=== PATIENT | male | born 1940 | race Caucasian/White ===

== ENCOUNTER 2018-04-30 18:13 | Emergency (ER) | payer OTHER, MEDICAID ==
[~2018-04-30] VITALS: Ht 170.2 cm; Wt 89.0 kg
[2018-04-30] MEDS ORDERED: LISI40TA PO (18:38)
[2018-04-30] MEDS ORDERED: MIRT15TA4 PO (18:38)
[2018-04-30] MEDS ORDERED: ASPI-515 PO (18:38)
[2018-04-30] MEDS ORDERED: TRAM50TA2 PO (18:38)
[2018-04-30] MEDS ORDERED: HYDR25TA6 PO (18:38)
[2018-04-30] MEDS ORDERED: LOVA20TA2 PO (18:38)
[2018-04-30] MEDS ORDERED: FERR324T5 PO (18:38)
[2018-04-30] MEDS ORDERED: GLIM2TAB2 PO (18:38)
[2018-04-30] MEDS ORDERED: CHLORDIAZEPOXIDE 5 MG CAPSULE PO ONE (19:00)
[2018-04-30 19:20] LABS: BASOPHILS # (AUTO) 0.06 x10^3/uL (0-0.1); BASOPHILS % (AUTO) 1 % (0-1); EOSINOPHILS # (AUTO) 0.02 x10^3/uL (0-0.4); EOSINOPHILS % (AUTO) 0 % (1-7); LYMPHOCYTES # (AUTO) 1.05 x10^3/uL (1-3.4); LYMPHOCYTES % (AUTO) 20 % (22-44); MD NO; MEAN CORPUSCULAR HEMOGLOBIN 27.1 pg (27.5-34.5); MEAN CORPUSCULAR HGB CONC 32.9 g/dL (33.2-36.2); MEAN CORPUSCULAR VOLUME 82.3 fL (81-97); MEAN PLATELET VOLUME 6.4 fL (7.4-10.4); MONOCYTES # (AUTO) 0.47 x10^3/uL (0.2-0.8); MONOCYTES % (AUTO) 9 % (2-9); NEUTROPHILS # (AUTO) 3.58 x10^3/uL (1.8-6.8); NEUTROPHILS % (AUTO) 69 % (42-75); PLATELET COUNT 341 x10^3/uL (130-400); RED BLOOD COUNT 4.92 x10^6/uL (4.38-5.82); RED CELL DISTRIBUTION WIDTH 16.5 % (9.4-14.8)
[2018-04-30 19:31] LABS: ALBUMIN 3.6 g/dL (3.4-5.0); ANION GAP 10 mmol/L (5-15); CALCIUM 9.1 mg/dL (8.5-10.1); CHLORIDE 102 mmol/L (98-107); CREATININE 1.08 mg/dL (0.7-1.3)
[2018-04-30] MEDS ORDERED: CHLORDIAZEPOXIDE 10 MG CAPSULE ONE (20:14)
[2018-04-30 20:22] VITALS: BP 157/96
[2018-04-30] MEDS ORDERED: CHLORDIAZEPOXIDE 10 MG CAPSULE PO PRN (20:30)
== END 2018-04-30 20:24 | disposition home or self-care (01) ==
LOC: ED 20:18
DX: F10.10 Alcohol abuse, uncomplicated (principal); F19.10 Other psychoactive substance abuse, uncomplicated; I10 Essential (primary) hypertension; E11.9 Type 2 diabetes mellitus without complications
CPT/HCPCS: 36415; 80048; 82040; 85025; 93005; 99285

== ENCOUNTER 2018-05-01 07:36 | Emergency (ER) | payer OTHER, MEDICAID ==
[~2018-05-01] VITALS: Ht 170.2 cm; Wt 87.0 kg
[~2018-05-01 07:36] MED LIST: ASPI-515 PO; FERR324T5 PO; GLIM2TAB2 PO; HYDR25TA6 PO; LISI40TA PO; LOVA20TA2 PO; MIRT15TA4 PO; TRAM50TA2 PO
[2018-05-01] MEDS ORDERED: LORazepam 1MG TABLET PO ONE (08:00)
[2018-05-01] MEDS ORDERED: LORazepam 1MG TABLET ONE (08:15)
[2018-05-01 08:32] LABS: BASOPHILS # (AUTO) 0.04 x10^3/uL (0-0.1); BASOPHILS % (AUTO) 1 % (0-1); EOSINOPHILS # (AUTO) 0.07 x10^3/uL (0-0.4); EOSINOPHILS % (AUTO) 1 % (1-7); LYMPHOCYTES # (AUTO) 1.29 x10^3/uL (1-3.4); LYMPHOCYTES % (AUTO) 19 % (22-44); MD NO; MEAN CORPUSCULAR HEMOGLOBIN 26.7 pg (27.5-34.5); MEAN CORPUSCULAR HGB CONC 32.4 g/dL (33.2-36.2); MEAN CORPUSCULAR VOLUME 82.5 fL (81-97); MEAN PLATELET VOLUME 6.8 fL (7.4-10.4); MONOCYTES % (AUTO) 6 % (2-9); NEUTROPHILS % (AUTO) 74 % (42-75); PLATELET COUNT 330 x10^3/uL (130-400); RED BLOOD COUNT 5.53 x10^6/uL (4.38-5.82); RED CELL DISTRIBUTION WIDTH 16.4 % (9.4-14.8)
[2018-05-01 08:33] LABS: ANION GAP 15 mmol/L (5-15); CALCIUM 8.9 mg/dL (8.5-10.1); CHLORIDE 102 mmol/L (98-107); CREATININE 1.37 mg/dL (0.7-1.3)
[2018-05-01] MEDS ORDERED: DIPHENHYDRAMINE 25 MG CAPSULE ONE (08:42)
[2018-05-01 08:47] VITALS: BP 152/101
[2018-05-01] MEDS ORDERED: DIPHENHYDRAMINE 25 MG CAPSULE PO ONE (09:00)
== END 2018-05-01 09:19 | disposition home or self-care (01) ==
LOC: ED 09:16
DX: T78.3XXA Angioneurotic edema, initial encounter (principal); W19.XXXA Unspecified fall, initial encounter; Y93.89 Activity, other specified; Y92.009 Unspecified place in unspecified non-institutional (private) residence as the place of occurrence of the external cause; Y99.8 Other external cause status; E11.9 Type 2 diabetes mellitus without complications; E78.00 Pure hypercholesterolemia, unspecified; I10 Essential (primary) hypertension
CPT/HCPCS: 36415; 80048; 85025; 99284; J7512; Q0163